=== PATIENT | female | born 1930 | race Caucasian/White ===

== ENCOUNTER 2018-05-03 22:26 | Inpatient (IN) | payer MEDICARE ==
[~2018-05-03] VITALS: Ht 152.4 cm; Wt 41.3 kg
--- NOTE | 2018-05-03 22:36 | NUR ---
PT DAVID TO ER BED 13. HERE FOR GEROPSYCH ADMISSION. PER REPORT PT IS ALREADY MEDICALLY CLEARED BUT NEEDS TO BE ON A PSYCHIATRIC HOLD. PT IAS AAOX1 TO NAME ONLY. STABLE VITALS. AWAITNG MD RIVERA.
--- NOTE | 2018-05-03 23:06 | NUR ---
REPORT TO CHARGE NURSE DELPHINE FOR ABHIJIT.
--- NOTE | 2018-05-04 01:34 | NUR ---
ART HAND RUG CLEANER AT BEDSIDE FOR EVAL.
[2018-05-04] MEDS ORDERED: AMLO10TA6 PO (01:52)
[2018-05-04] MEDS ORDERED: ASPI-1152 PO (01:52)
[2018-05-04] MEDS ORDERED: MELA3TAB70 PO (01:57)
[2018-05-04] MEDS ORDERED: ENOX40DI SQ (01:57)
[2018-05-04] MEDS ORDERED: RISP0.5T20 PO (01:57)
[2018-05-04] MEDS ORDERED: LOSA50TA21 PO (01:57)
[2018-05-04] MEDS ORDERED: UBID100C PO (01:57)
[2018-05-04] MEDS ORDERED: CLOP75TA15 PO (01:57)
[2018-05-04] MEDS ORDERED: LACO100T2 PO (01:57)
--- NOTE | 2018-05-04 02:00 | NUR ---
REPORT GIVEN TO HONEY CHOUDHURY FOR CONTINUATION OF CARE.
[2018-05-04 02:15] VITALS: BP 145/70
--- NOTE | 2018-05-04 02:15 | NUR ---
ADMISSION NOTE: ADMITTED FROM [facility]/ER INITIALLY CAME FROM [facility], ORIGINALLY FROM HOME. ADMITTED ON 5150 HOLD FOR GD. CAME TO THE UNIT AROUND 0215 ACCOMPANIED BY 1 MALE ER STAFF, PLACED PATIENT IN BED COMFORTABLY. UPON FACE TO FACE, PATIENT WAS WANDERING, AGITATED, THROWING THINGS AND AGGRESSIVE, CONFUSED, DISORGANIZED IN ALL SPHERES, HAS POOR INSIGHT AND IMPULSE CONTROL, POOR JUDGEMENT, FAMILY UNABLE TO PROVIDE FOOD, CLOTHING AND FDC WELL THE PATIENT DUE TO HER MENTAL STATE. PATIENT IS AWAKE, ALERT, ORIENTED X1. CONFUSED, UNABLE TO OBTAIN PERTINENT INFORMATIONS. RESPIRATION EVEN, BREATHING PATTERN NON-LABORED, NO ACUTE DISTRESS NOTED. NOTED SKIN DISCOLORATION ON ARMS, LEGS AND ABDOMEN, OTHERWISE SKIN IS INTACT. PHOTOS TAKEN. PATIENT IS AWAKE, AND CONFUSED, UNABLE TO RESPOND APPROPRIATELY DUE TO HER CONFUSION. BELONGINGS WERE INVENTORIED, NO CONTRABAND FOUND. PATIENT IS UNDER THE PSYCHIATRIC CARE OF DR. CLARK AND MEDICAL CARE OF DR. MOE. MRSA SCREEN DONE. MED RECON FOR FOLLOW-UP IN AM. BED LOCKED AND PLACED ON LOWEST POSITION. WILL CONTINUE TO MONITOR Q 15 MINS. TO MAINTAIN SAFETY.
--- NOTE | 2018-05-04 02:21 | NUR ---
PT TRANSFERRED VIA [facility] TO [facility] IN STABLE CONDITION.
[2018-05-04] MEDS ORDERED: clonazePAM 0.5 MG TABLET PO PRN (03:00)
[2018-05-04] MEDS ORDERED: MAGNESIUM HYDROXIDE 30 ML UDC PO PRN (03:00)
[2018-05-04] MEDS ORDERED: ACETAMINOPHEN 325 MG TABLET PO PRN (03:00)
[2018-05-04] MEDS ORDERED: MAG HYDROX/AL HYDROX/SIMETH 30 ML UDC PO PRN (03:00)
--- NOTE | 2018-05-04 06:18 | NUR ---
MRSA SCREEN DONE
--- NOTE | 2018-05-04 06:19 | NUR ---
SPOUSE LORRAINE, , NOTIFIED OF ADMISSION, LEFT A MESSAGE VIA [facility]
--- NOTE | 2018-05-04 06:20 | NUR ---
PAGED DR. SANTANA, RE: MED RECON
[2018-05-04 08:00] VITALS: BP 134/62
[2018-05-04] MEDS: ASPIRIN EC 81 MG TABLET.DR PO SCH ×4 (09:00→15:14)
[2018-05-04] MEDS: LOSARTAN POTASSIUM 50 MG TABLET PO SCH ×3 (09:00→15:15)
[2018-05-04 09:27] LABS: BASOPHILS % (AUTO) 0.8 % (0.0-2.0); EOSINOPHILS % (AUTO) 2.4 % (0.0-6.0); HEMATOCRIT 35 % (33-45); HEMOGLOBIN 11.1 g/dL (11.5-14.8); LYMPHOCYTES # (AUTO) 1.8 /CMM (0.8-4.8); LYMPHOCYTES % (AUTO) 34.9 % (20.0-44.0); MEAN CORPUSCULAR HGB CONC 32 g/dl (31.0-36.0); MEAN CORPUSCULAR VOLUME 92 fL (82-100); MONOCYTES # (AUTO) 0.7 /CMM (0.1-1.30); MONOCYTES % (AUTO) 14.5 % (2.0-12.0); NEUTROPHILS # (AUTO) 2.4 /CMM (1.8-8.9); NEUTROPHILS % (AUTO) 47.4 % (43.0-81.0); PLATELET COUNT (AUTO) 512 /CMM (150-450); RDW COEFFICIENT OF VARIATION 13.4 (11.5-15.0); RED BLOOD CELL COUNT(AUTO) 3.77 MIL/uL (4.0-5.2); WHITE BLOOD COUNT (AUTO) 5.1 K/uL (4.3-11.0)
[2018-05-04 09:44] LABS: CALCIUM, SERUM 9.2 mg/dL (8.5-10.1); CARBON DIOXIDE 27 mmol/L (21-32); CHLORIDE 100 mmol/L (98-107); CREATININE 1.3 mg/dL (0.6-1.3); GLUCOSE 103 mg/dL (74-106); POTASSIUM 3.9 mmol/L (3.5-5.1); SODIUM SERUM 137 mmol/L (136-145); UREA NITROGEN, BLOOD 20 mg/dL (7-18)
[2018-05-04] MEDS: CLOPIDOGREL BISULFATE 75 MG TABLET PO SCH ×3 (10:10→15:17)
[2018-05-04] MEDS: AMLODIPINE BESYLATE 10 MG TABLET PO SCH ×3 (10:10→15:15)
[2018-05-04] MEDS: risperiDONE 1 MG TABLET PO SCH ×2 (11:00→16:49)
[2018-05-04] MEDS: ENOXAPARIN SODIUM 30 MG/0.3 ML DISP.SYRIN SQ SCH (13:30)
--- NOTE | 2018-05-04 15:00 | NUR ---
FAMILY IN AT THIS TIME AND REQUESTING THAT REFUSED MEDS IN AM BE GIVEN.BP GOOD.
[2018-05-04 16:00] VITALS: BP 148/106
--- NOTE | 2018-05-04 18:53 | NUR ---
PT. NOW SEEMS AGREEABLE TO TAKE HER MEDS.
[2018-05-04 20:00] VITALS: BP 148/66
[2018-05-05] MEDS: TEMAZEPAM 7.5 MG CAPSULE PO PRN (00:02)
--- NOTE | 2018-05-05 00:08 | NUR ---
Temazepam 7.5 mg cap 1 po given, patient still awake.
[2018-05-05 07:54] LABS: BASOPHILS % (AUTO) 0.6 % (0.0-2.0); EOSINOPHILS % (AUTO) 2.4 % (0.0-6.0); HEMATOCRIT 34 % (33-45); LYMPHOCYTES # (AUTO) 1.6 /CMM (0.8-4.8); LYMPHOCYTES % (AUTO) 35.5 % (20.0-44.0); MEAN CORPUSCULAR HGB CONC 33 g/dl (31.0-36.0); MEAN CORPUSCULAR VOLUME 92 fL (82-100); MONOCYTES # (AUTO) 0.8 /CMM (0.1-1.30); MONOCYTES % (AUTO) 17.2 % (2.0-12.0); NEUTROPHILS % (AUTO) 44.3 % (43.0-81.0); PLATELET COUNT (AUTO) 472 /CMM (150-450); RDW COEFFICIENT OF VARIATION 13.5 (11.5-15.0); RED BLOOD CELL COUNT(AUTO) 3.64 MIL/uL (4.0-5.2); WHITE BLOOD COUNT (AUTO) 4.5 K/uL (4.3-11.0)
[2018-05-05 08:00] VITALS: BP 149/75
[2018-05-05 08:16] LABS: ALANINE AMINOTRANSFERASE 19 U/L (12-78); ALBUMIN 3.5 g/dL (3.4-5.0); ALKALINE PHOSPHATASE 86 U/L (46-116); ASPARTATE AMINOTRANSFERASE 16 U/L (15-37); BILIRUBIN,TOTAL 0.4 mg/dL (0.2-1.0); CALCIUM, SERUM 8.9 mg/dL (8.5-10.1); CARBON DIOXIDE 25 mmol/L (21-32); CHLORIDE 101 mmol/L (98-107); GLUCOSE 84 mg/dL (74-106); POTASSIUM 4.3 mmol/L (3.5-5.1); SODIUM SERUM 136 mmol/L (136-145); TOTAL PROTEIN, SERUM 6.9 g/dL (6.4-8.2); UREA NITROGEN, BLOOD 19 mg/dL (7-18)
[2018-05-05 08:20] LABS: CHOLESTEROL 216 mg/dL (<200); HDL CHOLESTEROL 54 mg/dL (40-60); LDL 151 mg/dL (0-99); TRIGLYCERIDES 89 mg/dL (30-150)
[2018-05-05] MEDS: CLOPIDOGREL BISULFATE 75 MG TABLET PO SCH (08:59)
[2018-05-05] MEDS: risperiDONE 1 MG TABLET PO SCH ×2 (09:00→16:54)
[2018-05-05] MEDS: LOSARTAN POTASSIUM 50 MG TABLET PO SCH (09:00)
[2018-05-05] MEDS: AMLODIPINE BESYLATE 10 MG TABLET PO SCH (09:01)
[2018-05-05] MEDS: ASPIRIN EC 81 MG TABLET.DR PO SCH (09:01)
[2018-05-05] MEDS: ENOXAPARIN SODIUM 30 MG/0.3 ML DISP.SYRIN SQ SCH (09:06)
[2018-05-05 16:00] VITALS: BP 154/54
[2018-05-05 20:29] VITALS: BP_SYST 136; BP_SYST 164; BP_DIAS 68; BP_DIAS 83
--- NOTE | 2018-05-05 21:46 | NUR ---
GPS RN NOTE, PATIENT DAUGHTER ON THE PHONE ASKING IF HER MOTHER HAS BEEN ORDERED A LIDOCAINE PATCH FOR HER MOTHERS LOWER BACK. PAGED [employer] AND INFORMED DR FORMAN OF MY FINDINGS. DR FORMAN ORDERED A LIDOCAINE 5 % PATCH TP Q24HR, 12HR ON AND 12HR OFF TO START AT 0900. ALL ORDERS NOTED AND CARRIED OUT WILL CONTINUE TO MONITOR THIS PATIENT.
[2018-05-06 08:00] VITALS: BP 158/77
[2018-05-06] MEDS: ASPIRIN EC 81 MG TABLET.DR PO SCH (08:59)
[2018-05-06] MEDS: LOSARTAN POTASSIUM 50 MG TABLET PO SCH (09:00)
[2018-05-06] MEDS: risperiDONE 1 MG TABLET PO SCH ×2 (09:00→16:27)
[2018-05-06] MEDS: AMLODIPINE BESYLATE 10 MG TABLET PO SCH (09:00)
[2018-05-06] MEDS: CLOPIDOGREL BISULFATE 75 MG TABLET PO SCH (09:00)
[2018-05-06] MEDS: ENOXAPARIN SODIUM 30 MG/0.3 ML DISP.SYRIN SQ SCH (09:04)
[2018-05-06] MEDS: LIDOCAINE 5% (PATCH) 1 EA PATCH TP SCH (09:05)
--- NOTE | 2018-05-06 11:44 | NUR ---
RUSLAN called the pt's , Fady ([phone]), and left a message on his voicemail asking for a call back so that the discharge plan can be discussed.
--- NOTE | 2018-05-06 12:08 | NUR ---
SW called the pt's daughter, Lynsey ([phone]), and discussed the pt's assessment and then went on to discuss the discharge plan as well. Pt's daughter stated that the family would like the pt to return home once she is cleared for discharge and that they have a installation helper in place.
--- NOTE | 2018-05-06 12:10 | NUR ---
Pt's , Fady ([phone]), called the SW and stated that he had left paperwork for the psychiatrist in the chart that he would like the SW to remind the psychiatrist about. SW stated that she would inform Dr. Yañez to give the pt's a call.
--- NOTE | 2018-05-06 13:52 | NUR ---
Initial Discharge Plan: Pt currently resides at [address] [place] [address]; ([phone]). Per pt, she would like to return home. RUSLAN spoke to the pt's daughter, Lynsey ([phone]), and stated that the family wants the pt to return home when she is ready. RUSLAN will work with the pt and the MD regarding appropriate discharge planning. SW will form a safe and proper discharge.
--- NOTE | 2018-05-06 15:40 | NUR ---
RUSLAN called the pt's , Fady ([phone]), and informed him that Dr. Yañez went through the history that they provided but that he is unable to call on a daily basis and will every couple of days. Dr. Yañez told the SW to tell the family that he is working with the treatment team to devise a plan of action. RUSLAN then told the family that they can visit whenever the time is convenient for them due to their long distance.
[2018-05-06 16:00] VITALS: BP 150/56
[2018-05-06 20:55] VITALS: BP 135/75
[2018-05-06] MEDS: ATORVASTATIN 10 MG TABLET PO SCH (21:44)
[2018-05-06] MEDS: TEMAZEPAM 7.5 MG CAPSULE PO PRN (21:44)
[2018-05-07 04:20] LABS: APPEARANCE,URINE CLEAR (CLEAR); BILIRUBIN,URINE NEGATIVE (NEGATIVE); BLOOD, URINE NEGATIVE Ery/uL (NEGATIVE); COLOR,URINE YELLOW (YELLOW); KETONES,URINE NEGATIVE (NEGATIVE); LEUKOCYTE ESTERASE ,URINE TRACE (NEGATIVE); NITRITE, URINE NEGATIVE (NEGATIVE); PROTEIN,URINE NEGATIVE (NEGATIVE); UGLUCOSE NEGATIVE (NEGATIVE); UROBILINOGEN,URINE 0.2 EU/dL (0.2)
[2018-05-07 05:03] LABS: RBC,URINE 0-2 /HPF (0-2)
[2018-05-07 05:06] LABS: SQUAMOUS EPITHELIAL CELL,UR Few /HPF (None Seen)
[2018-05-07 05:07] LABS: BACTERIA,URINE Few /HPF (None Seen)
[2018-05-07 08:00] VITALS: BP 122/73
[2018-05-07] MEDS: ASPIRIN EC 81 MG TABLET.DR PO SCH (08:55)
[2018-05-07] MEDS: risperiDONE 1 MG TABLET PO SCH ×2 (08:55→16:31)
[2018-05-07] MEDS: CLOPIDOGREL BISULFATE 75 MG TABLET PO SCH (08:55)
[2018-05-07] MEDS: LIDOCAINE 5% (PATCH) 1 EA PATCH TP SCH ×2 (08:55→14:31)
[2018-05-07] MEDS: ENOXAPARIN SODIUM 30 MG/0.3 ML DISP.SYRIN SQ SCH (08:56)
[2018-05-07] MEDS: LOSARTAN POTASSIUM 50 MG TABLET PO SCH (08:57)
[2018-05-07] MEDS: AMLODIPINE BESYLATE 10 MG TABLET PO SCH (08:58)
--- NOTE | 2018-05-07 14:31 | NUR ---
GPS RN NOTE: PT SHOWERED REMOVED LIDOCANE PATCH BY WRITER PRODUCER FAMILY AT THE BED SIDE ANOTHER PACH APPLIED.
[2018-05-07 16:00] VITALS: BP 120/59
[2018-05-07 20:38] VITALS: BP 131/44
[2018-05-07] MEDS: ATORVASTATIN 10 MG TABLET PO SCH (21:15)
[2018-05-07 23:00] VITALS: BP 132/63
[2018-05-08 08:00] VITALS: BP 126/60
[2018-05-08] MEDS: CLOPIDOGREL BISULFATE 75 MG TABLET PO SCH (08:53)
[2018-05-08] MEDS: ENOXAPARIN SODIUM 30 MG/0.3 ML DISP.SYRIN SQ SCH (08:53)
[2018-05-08] MEDS: risperiDONE 1 MG TABLET PO SCH ×2 (08:54→17:41)
[2018-05-08] MEDS: ASPIRIN EC 81 MG TABLET.DR PO SCH (08:54)
[2018-05-08] MEDS: LOSARTAN POTASSIUM 50 MG TABLET PO SCH (08:55)
[2018-05-08] MEDS: AMLODIPINE BESYLATE 10 MG TABLET PO SCH (08:55)
[2018-05-08] MEDS: LIDOCAINE 5% (PATCH) 1 EA PATCH TP SCH (09:01)
[2018-05-08] MEDS ORDERED: NITROGLYCERIN PACKET 1 GM PACKET ONE (17:01)
[2018-05-08 17:09] VITALS: BP 156/84
[2018-05-08 20:05] VITALS: BP 150/65
[2018-05-08] MEDS: ATORVASTATIN 10 MG TABLET PO SCH (21:17)
[2018-05-08 23:00] VITALS: BP 128/78
[2018-05-09 08:00] VITALS: BP 142/73
[2018-05-09] MEDS: ASPIRIN EC 81 MG TABLET.DR PO SCH (09:02)
[2018-05-09] MEDS: LOSARTAN POTASSIUM 50 MG TABLET PO SCH (09:03)
[2018-05-09] MEDS: ENOXAPARIN SODIUM 30 MG/0.3 ML DISP.SYRIN SQ SCH (09:03)
[2018-05-09] MEDS: CLOPIDOGREL BISULFATE 75 MG TABLET PO SCH (09:03)
[2018-05-09] MEDS: risperiDONE 1 MG TABLET PO SCH ×2 (09:04→16:43)
[2018-05-09] MEDS: AMLODIPINE BESYLATE 10 MG TABLET PO SCH (09:04)
[2018-05-09] MEDS: LIDOCAINE 5% (PATCH) 1 EA PATCH TP SCH (09:05)
[2018-05-09 16:00] VITALS: BP 137/69
--- NOTE | 2018-05-09 16:27 | NUR ---
RUSLAN met with the pt's daughter, Lynsey ([phone]), and the pt's , Fady ([phone]), and informed them both about the medications that the pt is currently taking, the pts present behavior, the pts hold status and the discharge plan.
[2018-05-09 20:00] VITALS: BP 155/72
[2018-05-09] MEDS: DONEPEZIL 5 MG TABLET PO SCH (21:09)
[2018-05-09] MEDS: ATORVASTATIN 10 MG TABLET PO SCH (21:09)
[2018-05-10 08:00] VITALS: BP 128/68
[2018-05-10] MEDS: ASPIRIN EC 81 MG TABLET.DR PO SCH (08:17)
[2018-05-10] MEDS: CLOPIDOGREL BISULFATE 75 MG TABLET PO SCH (08:17)
[2018-05-10] MEDS: risperiDONE 1 MG TABLET PO SCH ×2 (08:18→16:48)
[2018-05-10] MEDS: AMLODIPINE BESYLATE 10 MG TABLET PO SCH (08:18)
[2018-05-10] MEDS: LOSARTAN POTASSIUM 50 MG TABLET PO SCH (08:18)
[2018-05-10] MEDS: ENOXAPARIN SODIUM 30 MG/0.3 ML DISP.SYRIN SQ SCH (08:20)
[2018-05-10] MEDS: LIDOCAINE 5% (PATCH) 1 EA PATCH TP SCH (08:30)
--- NOTE | 2018-05-10 13:37 | NUR ---
RUSLAN called the pt's daughter, Lynsey ([phone]), and left a message on her voicemail stating that the discharge needs to be discussed.
--- NOTE | 2018-05-10 15:54 | NUR ---
SW met with the pt's daughter, Lynsey ([phone]), and the pt's , Fady ([phone]), and discussed the discharge plan.
[2018-05-10 16:00] VITALS: BP 125/64
--- NOTE | 2018-05-10 16:12 | NUR ---
Discharge Note: Pt was discharged home to [id number] [place], [place] [id number]; ([phone]). Pts family, Lynsey and Fady ([phone]) picked up the pt around 12pm. Pt was provided with psychiatrist and neurologist referrals. Upon discharge, the pt appeared to be in a euthymic mood with a calm and content affect. Pt denied having any suicidal or homicidal ideation as well as auditory and visual hallucinations. Psychiatrist referrals: MICHAEL ALMEIDA Primary specialty: Psychiatry (Geriatric) [address] [place], [place] [id number] CECE BRAR Primary specialty: Psychiatry Additional specialties: Addiction medicine, Psychiatry (Geriatric) [address] [place] [address] RIDGE VERDE Primary specialty: Psychiatry (Geriatric) Additional specialty: Psychiatry [address] [place] [address] FLORENCIO WATERS Primary specialty: Psychiatry (Geriatric) [address] [place] [address] JACQUES HARDEN Primary specialty: Psychiatry (Geriatric) [address] [place] [address] Neurologist Referrals: Dr. Jose Howell MD [address] [facility] [id number], [place] [address] Dr. Franklin Skinner MD [address] [facility], [place] [address] Dr. Claire Camp MD - [facility] [address], [place] [address] Dr. Walter Parsons MD [address] [place] [address]
[2018-05-10 20:00] VITALS: BP 140/70
[2018-05-10] MEDS: ATORVASTATIN 10 MG TABLET PO SCH (21:34)
[2018-05-10] MEDS: DONEPEZIL 5 MG TABLET PO SCH (21:34)
[2018-05-10] MEDS: TEMAZEPAM 7.5 MG CAPSULE PO PRN (21:35)
[2018-05-10] MEDS: CEPHALEXIN MONOHYDRATE 250 MG CAPSULE PO SCH (22:27)
[2018-05-11] MEDS: CEPHALEXIN MONOHYDRATE 250 MG CAPSULE PO SCH (04:44)
[2018-05-11 08:00] VITALS: BP 136/87
--- NOTE | 2018-05-11 08:11 | NUR ---
DR. CLARK GAVE AN ORDER TO D/C HOLD AND D/C HOME AND TO FOLLOW UP WITH PSYCH AND MEDICAL DOCTORS.
[2018-05-11 08:50] VITALS: BP 136/87
[2018-05-11] MEDS: AMLODIPINE BESYLATE 10 MG TABLET PO SCH (08:50)
[2018-05-11] MEDS: LIDOCAINE 5% (PATCH) 1 EA PATCH TP SCH (08:50)
[2018-05-11] MEDS: risperiDONE 1 MG TABLET PO SCH (08:50)
[2018-05-11] MEDS: ASPIRIN EC 81 MG TABLET.DR PO SCH (08:50)
[2018-05-11] MEDS: CLOPIDOGREL BISULFATE 75 MG TABLET PO SCH (08:50)
[2018-05-11] MEDS: LOSARTAN POTASSIUM 50 MG TABLET PO SCH (08:50)
[2018-05-11] MEDS: ENOXAPARIN SODIUM 30 MG/0.3 ML DISP.SYRIN SQ SCH (08:52)
--- NOTE | 2018-05-11 08:55 | NUR ---
SPOKE PIEDADREHANA BULLOCK THE DAUGHTER AT [phone] AND WAS NOTIFIED ABOUT THE DISCHARGE AND SAID THEY WILL COME TO PICK HER UP.
--- NOTE | 2018-05-11 12:40 | NUR ---
GPS PURCHASING OFFICER NOTE: PT DISCHARGE HOME TO [address] [place] [address] PICKED UP BY PIEDAD DAUGHTER AND LORRAINE. PT DISCHARGE IN STABLE CONDITION NO S/S DISTRESS NOTED, VSS, PT AMBULATORY WITH WALKER, A/O 2-3 DENIES SI/HI NO C/O PAIN OR ANY DISCOMFORT. DR CLARK AND LAUREL FRANK NOTIFIED AND AGREED FOR DISCHARGE. PRESCRIPTION GIVEN AND EXPLAIN TO FAMILY, ALL BELONGINGS RETURNED TO PT. EXIT CARE DONE PRINTED PT REFUSED TO SIGN DISCHARGE PAPERS REFUSED SKIN ASSESSMENT .
== END 2018-05-11 12:15 | disposition home or self-care (01) | DRG 885 ==
LOC: ER 22:32 → GPS 05-04 02:04
PROVIDERS: ADMIT Psychiatry & Neurology Psychiatry; ATTEND Psychiatry & Neurology Psychiatry
DX: F29 Unspecified psychosis not due to a substance or known physiological condition (principal); I11.0 Hypertensive heart disease with heart failure; G93.40 Encephalopathy, unspecified; N39.0 Urinary tract infection, site not specified; F03.90 Unspecified dementia, unspecified severity, without behavioral disturbance, psychotic disturbance, mood disturbance, and anxiety; G40.909 Epilepsy, unspecified, not intractable, without status epilepticus; K29.70 Gastritis, unspecified, without bleeding; I69.320 Aphasia following cerebral infarction; E78.5 Hyperlipidemia, unspecified; Z87.11 Personal history of peptic ulcer disease; M81.0 Age-related osteoporosis without current pathological fracture; E55.9 Vitamin D deficiency, unspecified; K64.9 Unspecified hemorrhoids; Z79.82 Long term (current) use of aspirin; Z79.899 Other long term (current) drug therapy; I50.9 Heart failure, unspecified
CPT/HCPCS: 36415; 70450-TC; 80048-TC; 80053-TC; 80061-TC; 81000-TC; 82962-TC; 84443-TC; 85025-TC; 87081-TC; 87086-TC; 87186-TC; A4606; J1650; Z7610